=== PATIENT | male | born 1940 | race African-American/Black ===

== ENCOUNTER 2016-10-20 04:00 | Inpatient (IN) | payer OTHER ==
[~2016-10-20] VITALS: Ht 177.8 cm; Wt 145.5 kg
[~2016-10-20 04:00] MED LIST: CIPRO500 MG PO; METFORMIN HCL1000 MG PO; MYCOSTATIN1 APPLICAT TP; NITROSTAT0.3 MG SL; PIOGLITAZONE HC15 MG PO; POLYETHYLENE G255 GM PO; PYRIDIUM200 MG PO; RAMIPRIL10 MG PO; SIMVASTATIN20 MG PO; TRAMADOL HCL50 MG PO
[2016-10-20 05:03] LABS: HEMATOCRIT 44.7 % (38.0-50.0); MCH 29.8 PG (29.0-34.0); MCHC 33.6 G/DL (30.0-36.0); MCV 88.7 FL (86-99); MEAN PLAT.VOLUME 9.9 uM^3 (9.0-12.4); PLATELET COUNT 204 K/uL (156-360); RBC DIS.WIDTH-CV 14.1 % (11.8-14.6); RBC DIS.WIDTH-SD 45.2 % (39-53); RED BLOOD COUNT 5.04 M/uL (4.00-5.50); WHITE BLOOD COUNT 4.9 K/uL (4.1-10.2)
[2016-10-20 05:13] LABS: CHLORIDE 103 mEq/L (99-109); SODIUM 140 mEq/L (136-147)
[2016-10-20 05:14] LABS: GLUCOSE 227 mg/dL (70-99)
[2016-10-20 05:16] LABS: ANION GAP 12 MEQ/L (2-14)
[2016-10-20 05:18] LABS: GFR ESTIMATE (CALCULATED) > 59 mL/min/
[2016-10-20 05:19] LABS: UREA NITROGEN (BUN) 14 mg/dL (9-23)
[2016-10-20 05:24] LABS: TROP-I INTERPRETATION NEGATIVE; TROPONIN-I < 0.01 ng/mL (0.0-0.30)
[2016-10-20 05:55] LABS: TOTAL BILIRUBIN 1.2 mg/dL (0.0-1.0)
[2016-10-20 05:56] LABS: ALKALINE PHOSPHATASE 99 IU/L (3-129)
[2016-10-20 05:59] LABS: DIRECT BILIRUBIN 0.8 mg/dL (0.0-0.3)
[2016-10-20 06:15] LABS: LIPASE > 4220 U/L (1.0-51.0)
[2016-10-20 06:50] LABS: ADD MIUA? YES; BILIRUBIN NEGATIVE; BLOOD NEGATIVE; COLOR YELLOW ((YELLOW)); GLUCOSE (STRIP) 50; KETONES NEGATIVE; LEUKOCYTES NEGATIVE; NITRITE NEGATIVE; PROTEIN (STRIP) NEGATIVE; SPECIFIC GRAVITY 1.013 (1.000-1.030)
[2016-10-20 07:01] LABS: BACTERIA RARE /HPF; EPITHELIAL CELLS NONE SEEN /HPF; MUCUS TRACE /LPF; RED BLOOD CELLS 0-5 /HPF (0-5); UCUL ADDED? NO; WHITE BLOOD CELLS 0-5 /HPF (0-5)
[2016-10-20 09:01] LABS: HDL CHOLESTEROL 43 MG/DL (Desirable>=40); LDL CHOLESTEROL 55 mg/dL (Desirable<100); NON-HDL CHOLESTEROL 69 mg/dL (Desirable<160); TOTAL CHOLESTEROL 112 mg/dL (Desirable<200); TRIGLYCERIDES 70 MG/DL (Normal: <150)
[2016-10-20 09:30] LABS: POINT-OF-CARE METER ID UU13113702
[2016-10-20] MEDS ORDERED: AMLODIPINE BESYL5 MG PO (11:39)
[2016-10-20] MEDS ORDERED: VITAMIN D35000 UNIT PO (11:40)
[2016-10-20] MEDS ORDERED: ASPIR-LOW81 MG PO (11:40)
[2016-10-20] MEDS ORDERED: HYDROCHLOROTH12.5 M3 PO (11:40)
[2016-10-20] MEDS ORDERED: TERBINAFINE HC250 MG PO (11:41)
[2016-10-20 13:33] LABS: C-REACTIVE PROTEIN 7.7 MG/L (0-10); SAMPLE HEMOLYSIS CHECK 0; SAMPLE ICTERIC CHECK 0; SAMPLE LIPEMIA CHECK 0
[2016-10-20 15:24] VITALS: BP 88/49
[2016-10-20 15:27] LABS: POINT-OF-CARE METER ID UU13113725
[2016-10-20 16:31] VITALS: BP 92/58
[2016-10-20 18:06] VITALS: BP 120/72
[2016-10-20 18:22] LABS: POINT-OF-CARE METER ID UU13113725
[2016-10-20 21:39] LABS: POINT-OF-CARE METER ID UU13113725
[2016-10-20 23:17] VITALS: BP 138/73
[2016-10-21 02:48] LABS: POINT-OF-CARE METER ID UU13113725; POINT-OF-CARE USER ID 608261329
[2016-10-21 06:41] LABS: HEMATOCRIT 39.9 % (38.0-50.0); MCHC 33.3 G/DL (30.0-36.0); MCV 90.1 FL (86-99); MEAN PLAT.VOLUME 10.3 uM^3 (9.0-12.4); PLATELET COUNT 170 K/uL (156-360); RBC DIS.WIDTH-CV 14.9 % (11.8-14.6); RED BLOOD COUNT 4.43 M/uL (4.00-5.50)
[2016-10-21 06:48] LABS: WHITE BLOOD COUNT 11.5 K/uL (4.1-10.2)
[2016-10-21 06:57] LABS: ALKALINE PHOSPHATASE 101 IU/L (3-129); ANION GAP 9 MEQ/L (2-14); CHLORIDE 104 MEQ/L (99-109); GFR ESTIMATE (CALCULATED) > 59 mL/min/; GLUCOSE 166 mg/dL (70-99); POTASSIUM 4.1 MEQ/L (3.7-5.4); SAMPLE HEMOLYSIS CHECK 0; SAMPLE ICTERIC CHECK 1; SAMPLE LIPEMIA CHECK 0; SODIUM 139 MEQ/L (136-147); TOTAL BILIRUBIN 5.9 MG/DL (0.0-1.0); UREA NITROGEN (BUN) 19 mg/dL (9-23)
[2016-10-21 08:28] VITALS: BP 139/79
[2016-10-21 10:37] LABS: POINT-OF-CARE METER ID UU13113725
[2016-10-21 12:09] VITALS: BP 130/62
[2016-10-21 14:00] LABS: POINT-OF-CARE METER ID UU13113725
[2016-10-21 16:49] VITALS: BP 149/79
[2016-10-21 19:24] LABS: POINT-OF-CARE METER ID UU13113725
[2016-10-21 20:07] LABS: ALKALINE PHOSPHATASE 106 IU/L (3-129); ANION GAP 11 MEQ/L (2-14); CHLORIDE 104 MEQ/L (99-109); GFR ESTIMATE (CALCULATED) > 59 mL/min/; GLUCOSE 163 mg/dL (70-99); SAMPLE HEMOLYSIS CHECK 1; SAMPLE ICTERIC CHECK 2; SAMPLE LIPEMIA CHECK 0; SODIUM 138 MEQ/L (136-147); TOTAL BILIRUBIN 6.3 MG/DL (0.0-1.0); UREA NITROGEN (BUN) 15 mg/dL (9-23)
[2016-10-21 20:08] LABS: POTASSIUM 3.6 MEQ/L (3.7-5.4)
[2016-10-21 20:45] LABS: ABS NEUTROPHIL COUNT 12.4; ATYPICAL LYMPHOCYTE 2.7 %; BAND NEUTROPHILS 15.9 % (0-8.0); EOSINOPHIL ABS CT 0; HEMATOCRIT 47.2 % (38.0-50.0); INSTRUMENT ABS NEUTROPHIL CT 12.1 K/uL; LYMPHOCYTES 1.8 % (15.0-45.0); MCH 29.5 PG (29.0-34.0); MCHC 33.3 G/DL (30.0-36.0); MCV 88.7 FL (86-99); MEAN PLAT.VOLUME 10.2 uM^3 (9.0-12.4); PLAT.SUFFICIENCY DECREASED; PLATELET COUNT 146 K/uL (156-360); RBC DIS.WIDTH-CV 14.7 % (11.8-14.6); RBC DIS.WIDTH-SD 48.4 % (39-53); RED BLOOD COUNT 5.32 M/uL (4.00-5.50); SMUDGE CELLS 4.4; WHITE BLOOD COUNT 13.3 K/uL (4.1-10.2)
[2016-10-21 21:44] LABS: POINT-OF-CARE METER ID UU13113725
[2016-10-21 23:49] VITALS: BP 168/59
[2016-10-22 06:21] LABS: POINT-OF-CARE METER ID UU13113725
[2016-10-22 07:05] VITALS: BP 138/76
[2016-10-22 08:40] LABS: HEMATOCRIT 42.1 % (38.0-50.0); MCH 29.4 PG (29.0-34.0); MCHC 33.3 G/DL (30.0-36.0); MCV 88.4 FL (86-99); MEAN PLAT.VOLUME 10.4 uM^3 (9.0-12.4); PLATELET COUNT 154 K/uL (156-360); RBC DIS.WIDTH-CV 14.9 % (11.8-14.6); RBC DIS.WIDTH-SD 48.6 % (39-53); RED BLOOD COUNT 4.76 M/uL (4.00-5.50); WHITE BLOOD COUNT 12.8 K/uL (4.1-10.2)
[2016-10-22 09:15] LABS: ALKALINE PHOSPHATASE 121 IU/L (3-129); ANION GAP 12 MEQ/L (2-14); CHLORIDE 105 MEQ/L (99-109); GFR ESTIMATE (CALCULATED) > 59 mL/min/; GLUCOSE 191 mg/dL (70-99); LIPASE 220 U/L (1.0-51.0); POTASSIUM 3.4 MEQ/L (3.7-5.4); SAMPLE HEMOLYSIS CHECK 0; SAMPLE ICTERIC CHECK 2; SAMPLE LIPEMIA CHECK 0; SODIUM 142 MEQ/L (136-147); UREA NITROGEN (BUN) 12 mg/dL (9-23)
[2016-10-22 09:29] LABS: EOSINOPHIL (%) 0 % (0-5); IMMATURE GRANULOCYTE (%) 0.9 % (0.0-0.7); IMMATURE GRANULOCYTE COUNT 0.1 K/uL; INSTRUMENT ABS NEUTROPHIL CT 11.5 K/uL; LYMPHOCYTE COUNT 0.6 K/uL (1.0-2.8); MONOCYTE (%) 4.8 % (3-12); MONOCYTE COUNT 0.6 K/uL (0-0.8); NEUTROPHIL (%) 89.8 % (45-76); NEUTROPHIL COUNT 11.5 K/uL (1.8-6.4)
[2016-10-22 10:20] LABS: ANTI-HEPATITIS A VIRUS (IGM) Nonreactive; HBSG INDEX 0.21; HPCA INDEX 0.12
[2016-10-22 10:22] LABS: ANTI-HEPATITIS B CORE (IGM) Nonreactive; HBC IgM INDEX 0.08
[2016-10-22 15:15] VITALS: BP 135/73
[2016-10-22 22:50] VITALS: BP 142/68
[2016-10-22 23:50] LABS: POINT-OF-CARE METER ID UU13113725
[2016-10-23 06:12] LABS: POINT-OF-CARE METER ID UU13113725
[2016-10-23 06:12] LABS: EOSINOPHIL (%) 0.4 % (0-5); IMMATURE GRANULOCYTE (%) 0.4 % (0.0-0.7); INSTRUMENT ABS NEUTROPHIL CT 9.6 K/uL; LYMPHOCYTE COUNT 0.5 K/uL (1.0-2.8); MCH 29.4 PG (29.0-34.0); MCHC 33.7 G/DL (30.0-36.0); MCV 87.2 FL (86-99); MEAN PLAT.VOLUME 10.7 uM^3 (9.0-12.4); MONOCYTE (%) 7.6 % (3-12); MONOCYTE COUNT 0.8 K/uL (0-0.8); NEUTROPHIL (%) 86.8 % (45-76); NEUTROPHIL COUNT 9.6 K/uL (1.8-6.4); PLATELET COUNT 142 K/uL (156-360); RBC DIS.WIDTH-CV 14.9 % (11.8-14.6); RBC DIS.WIDTH-SD 48.2 % (39-53); RED BLOOD COUNT 4.36 M/uL (4.00-5.50)
[2016-10-23 06:24] VITALS: BP 142/68
[2016-10-23 06:31] LABS: INTER. NORMALIZED RATIO 1.1; PROTHROMBIN TIME 11.4 (9.2-11.2)
[2016-10-23 06:44] LABS: ALKALINE PHOSPHATASE 126 IU/L (3-129); ANION GAP 10 MEQ/L (2-14); CHLORIDE 107 MEQ/L (99-109); DIRECT BILIRUBIN 5.3 mg/dL (0.0-0.3); GFR ESTIMATE (CALCULATED) > 59 mL/min/; GLUCOSE 158 mg/dL (70-99); LIPASE 147 U/L (1.0-51.0); POTASSIUM 3.5 MEQ/L (3.7-5.4); SAMPLE HEMOLYSIS CHECK 0; SAMPLE ICTERIC CHECK 2; SAMPLE LIPEMIA CHECK 0; SODIUM 143 MEQ/L (136-147); TOTAL BILIRUBIN 7.5 MG/DL (0.0-1.0); UREA NITROGEN (BUN) 11 mg/dL (9-23)
[2016-10-23 09:58] VITALS: BP 133/64
[2016-10-23 10:23] LABS: MAGNESIUM 1.9 mg/dl (1.3-2.7)
[2016-10-23 13:05] LABS: POINT-OF-CARE METER ID UU13113675
[2016-10-23 15:04] VITALS: BP 136/67
[2016-10-23 18:26] LABS: POINT-OF-CARE METER ID UU13113725
[2016-10-23 19:41] VITALS: BP 143/73
[2016-10-23 23:29] VITALS: BP 139/77
[2016-10-24 07:10] LABS: EOSINOPHIL (%) 1.4 % (0-5); EOSINOPHIL COUNT 0.1 K/uL (0-0.3); HEMATOCRIT 37.5 % (38.0-50.0); IMMATURE GRANULOCYTE (%) 0.8 % (0.0-0.7); IMMATURE GRANULOCYTE COUNT 0.1 K/uL; INSTRUMENT ABS NEUTROPHIL CT 8.4 K/uL; LYMPHOCYTE COUNT 0.6 K/uL (1.0-2.8); MCH 29.7 PG (29.0-34.0); MCHC 34.4 G/DL (30.0-36.0); MCV 86.4 FL (86-99); MEAN PLAT.VOLUME 10.5 uM^3 (9.0-12.4); MONOCYTE (%) 7.9 % (3-12); MONOCYTE COUNT 0.8 K/uL (0-0.8); NEUTROPHIL (%) 84.2 % (45-76); NEUTROPHIL COUNT 8.4 K/uL (1.8-6.4); PLATELET COUNT 148 K/uL (156-360); RBC DIS.WIDTH-CV 15.4 % (11.8-14.6); RBC DIS.WIDTH-SD 48.9 % (39-53); RED BLOOD COUNT 4.34 M/uL (4.00-5.50)
[2016-10-24 07:39] LABS: ALKALINE PHOSPHATASE 140 IU/L (3-129); ANION GAP 9 MEQ/L (2-14); CHLORIDE 107 MEQ/L (99-109); GFR ESTIMATE (CALCULATED) > 59 mL/min/; GLUCOSE 167 mg/dL (70-99); LIPASE 176 U/L (1.0-51.0); POTASSIUM 3.7 MEQ/L (3.7-5.4); SAMPLE HEMOLYSIS CHECK 0; SAMPLE ICTERIC CHECK 1; SAMPLE LIPEMIA CHECK 0; SODIUM 142 MEQ/L (136-147); UREA NITROGEN (BUN) 16 mg/dL (9-23)
[2016-10-24 07:49] LABS: TOTAL BILIRUBIN 5.6 MG/DL (0.0-1.0)
[2016-10-24 08:18] VITALS: BP 145/71
[2016-10-24 16:19] LABS: POINT-OF-CARE METER ID UU13113725
[2016-10-24 16:33] VITALS: BP 149/74
[2016-10-24 20:43] LABS: POINT-OF-CARE METER ID UU13113725
[2016-10-24 23:27] VITALS: BP 159/70
[2016-10-25 06:22] LABS: EOSINOPHIL (%) 0.5 % (0-5); EOSINOPHIL COUNT 0.1 K/uL (0-0.3); HEMATOCRIT 37.5 % (38.0-50.0); IMMATURE GRANULOCYTE COUNT 0.2 K/uL; INSTRUMENT ABS NEUTROPHIL CT 9.6 K/uL; LYMPHOCYTE COUNT 0.7 K/uL (1.0-2.8); MCH 29.1 PG (29.0-34.0); MCHC 33.9 G/DL (30.0-36.0); MEAN PLAT.VOLUME 10.7 uM^3 (9.0-12.4); MONOCYTE (%) 8.3 % (3-12); NEUTROPHIL (%) 82.9 % (45-76); NEUTROPHIL COUNT 9.6 K/uL (1.8-6.4); NRBC (%) 0.3 /100 WBC (0-0); PLATELET COUNT 150 K/uL (156-360); RBC DIS.WIDTH-CV 15.6 % (11.8-14.6); RED BLOOD COUNT 4.36 M/uL (4.00-5.50); WHITE BLOOD COUNT 11.6 K/uL (4.1-10.2)
[2016-10-25 06:40] LABS: ALKALINE PHOSPHATASE 133 IU/L (3-129); ANION GAP 12 MEQ/L (2-14); CHLORIDE 103 MEQ/L (99-109); GFR ESTIMATE (CALCULATED) > 59 mL/min/; GLUCOSE 159 mg/dL (70-99); POTASSIUM 3.5 MEQ/L (3.7-5.4); SAMPLE HEMOLYSIS CHECK 0; SAMPLE ICTERIC CHECK 1; SAMPLE LIPEMIA CHECK 0; SODIUM 140 MEQ/L (136-147); TOTAL BILIRUBIN 4.6 MG/DL (0.0-1.0); UREA NITROGEN (BUN) 12 mg/dL (9-23)
[2016-10-25 07:25] VITALS: BP 147/73
[2016-10-25 10:05] LABS: LIPASE 191 U/L (1.0-51.0)
[2016-10-25 16:04] VITALS: BP 158/99
[2016-10-25 16:25] LABS: POINT-OF-CARE METER ID UU13113725
[2016-10-26 00:26] VITALS: BP 140/71
[2016-10-26 06:58] VITALS: BP 95/61
[2016-10-26 11:15] LABS: POINT-OF-CARE METER ID UU13113675
[2016-10-26 14:27] VITALS: BP 129/61
[2016-10-26 14:56] LABS: HEMATOCRIT 35.2 % (38.0-50.0); MCH 29.6 PG (29.0-34.0); MCHC 34.1 G/DL (30.0-36.0); MCV 86.7 FL (86-99); MEAN PLAT.VOLUME 11.3 uM^3 (9.0-12.4); NRBC (%) 0.2 /100 WBC (0-0); PLATELET COUNT 181 K/uL (156-360); RBC DIS.WIDTH-CV 16.4 % (11.8-14.6); RBC DIS.WIDTH-SD 51.3 % (39-53); RED BLOOD COUNT 4.06 M/uL (4.00-5.50); WHITE BLOOD COUNT 10.3 K/uL (4.1-10.2)
[2016-10-26 15:25] LABS: ABS NEUTROPHIL COUNT 9.3; ATYPICAL LYMPHOCYTE 0.9 %; BAND NEUTROPHILS 1.7 % (0-8.0); EOSINOPHIL ABS CT 0; INSTRUMENT ABS NEUTROPHIL CT 8.7 K/uL; LYMPHOCYTES 4.3 % (15.0-45.0); MYELOCYTES 0.9 %; PLAT.SUFFICIENCY ADEQUATE; SEG.NEUTROPHILS 88.7 % (46.0-76.0); SMUDGE CELLS 0.9
[2016-10-26 15:51] VITALS: BP 123/57
[2016-10-26 16:00] LABS: ALKALINE PHOSPHATASE 132 IU/L (3-129); ANION GAP 10 MEQ/L (2-14); CHLORIDE 104 MEQ/L (99-109); GFR ESTIMATE (CALCULATED) > 59 mL/min/; GLUCOSE 164 mg/dL (70-99); SAMPLE HEMOLYSIS CHECK 1; SAMPLE ICTERIC CHECK 0; SAMPLE LIPEMIA CHECK 0; SODIUM 139 MEQ/L (136-147); UREA NITROGEN (BUN) 16 mg/dL (9-23)
[2016-10-26 16:01] LABS: POTASSIUM 4.2 MEQ/L (3.7-5.4); TOTAL BILIRUBIN 2.9 MG/DL (0.0-1.0)
[2016-10-26 21:28] LABS: POINT-OF-CARE METER ID UU13113725
[2016-10-27 00:37] VITALS: BP 126/61
[2016-10-27 05:42] LABS: POINT-OF-CARE METER ID UU13113725
[2016-10-27 06:27] LABS: EOSINOPHIL (%) 1.4 % (0-5); EOSINOPHIL COUNT 0.1 K/uL (0-0.3); HEMATOCRIT 35.2 % (38.0-50.0); IMMATURE GRANULOCYTE (%) 1.3 % (0.0-0.7); IMMATURE GRANULOCYTE COUNT 0.1 K/uL; LYMPHOCYTE COUNT 0.8 K/uL (1.0-2.8); MCH 29.1 PG (29.0-34.0); MCHC 33.5 G/DL (30.0-36.0); MCV 86.7 FL (86-99); MEAN PLAT.VOLUME 11.2 uM^3 (9.0-12.4); MONOCYTE (%) 7.8 % (3-12); MONOCYTE COUNT 0.7 K/uL (0-0.8); NEUTROPHIL (%) 80.4 % (45-76); PLATELET COUNT 188 K/uL (156-360); RBC DIS.WIDTH-CV 16.5 % (11.8-14.6); RBC DIS.WIDTH-SD 51.4 % (39-53); RED BLOOD COUNT 4.06 M/uL (4.00-5.50); WHITE BLOOD COUNT 8.6 K/uL (4.1-10.2)
[2016-10-27 06:52] LABS: ALKALINE PHOSPHATASE 134 IU/L (3-129); ANION GAP 8 MEQ/L (2-14); CHLORIDE 102 MEQ/L (99-109); GFR ESTIMATE (CALCULATED) > 59 mL/min/; GLUCOSE 185 mg/dL (70-99); POTASSIUM 3.9 MEQ/L (3.7-5.4); SAMPLE HEMOLYSIS CHECK 0; SAMPLE ICTERIC CHECK 0; SAMPLE LIPEMIA CHECK 0; SODIUM 140 MEQ/L (136-147); TOTAL BILIRUBIN 2.7 MG/DL (0.0-1.0); UREA NITROGEN (BUN) 15 mg/dL (9-23)
[2016-10-27 07:19] VITALS: BP 132/63
[2016-10-27 15:16] LABS: POINT-OF-CARE METER ID UU13113725
[2016-10-27 20:57] LABS: POINT-OF-CARE METER ID UU13113725
[2016-10-27 22:28] VITALS: BP 153/76
[2016-10-28 06:12] LABS: POINT-OF-CARE METER ID UU13113725
[2016-10-28 07:35] LABS: EOSINOPHIL (%) 0 % (0-5); HEMATOCRIT 37.1 % (38.0-50.0); IMMATURE GRANULOCYTE (%) 0.6 % (0.0-0.7); IMMATURE GRANULOCYTE COUNT 0.1 K/uL; INSTRUMENT ABS NEUTROPHIL CT 9.2 K/uL; LYMPHOCYTE COUNT 0.6 K/uL (1.0-2.8); MCH 29.5 PG (29.0-34.0); MCHC 34.2 G/DL (30.0-36.0); MCV 86.3 FL (86-99); MONOCYTE (%) 1.2 % (3-12); MONOCYTE COUNT 0.1 K/uL (0-0.8); NEUTROPHIL (%) 92.3 % (45-76); NEUTROPHIL COUNT 9.2 K/uL (1.8-6.4); PLATELET COUNT 225 K/uL (156-360); RBC DIS.WIDTH-CV 16.5 % (11.8-14.6); RBC DIS.WIDTH-SD 51.1 % (39-53); WHITE BLOOD COUNT 9.9 K/uL (4.1-10.2)
[2016-10-28 07:39] VITALS: BP 165/76
[2016-10-28 08:05] LABS: ALKALINE PHOSPHATASE 129 IU/L (3-129); ANION GAP 12 MEQ/L (2-14); CHLORIDE 98 MEQ/L (99-109); GFR ESTIMATE (CALCULATED) > 59 mL/min/; POTASSIUM 4.2 MEQ/L (3.7-5.4); SAMPLE HEMOLYSIS CHECK 0; SAMPLE ICTERIC CHECK 0; SAMPLE LIPEMIA CHECK 0; SODIUM 140 MEQ/L (136-147); UREA NITROGEN (BUN) 20 mg/dL (9-23)
[2016-10-28 08:06] LABS: GLUCOSE 308 mg/dL (70-99); TOTAL BILIRUBIN 2.1 MG/DL (0.0-1.0)
[2016-10-28 16:06] VITALS: BP 178/80
[2016-10-28 16:19] VITALS: BP 163/73
[2016-10-28 17:32] VITALS: BP 172/84
[2016-10-28 23:05] VITALS: BP 171/74
[2016-10-29 05:50] LABS: POINT-OF-CARE METER ID UU13113725
[2016-10-29 06:43] LABS: HEMATOCRIT 36.2 % (38.0-50.0); MCH 29.4 PG (29.0-34.0); MCHC 34.3 G/DL (30.0-36.0); MCV 85.8 FL (86-99); MEAN PLAT.VOLUME 10.9 uM^3 (9.0-12.4); PLATELET COUNT 266 K/uL (156-360); RBC DIS.WIDTH-CV 16.3 % (11.8-14.6); RED BLOOD COUNT 4.22 M/uL (4.00-5.50); WHITE BLOOD COUNT 13.1 K/uL (4.1-10.2)
[2016-10-29 07:04] LABS: ALKALINE PHOSPHATASE 135 IU/L (3-129); ANION GAP 12 MEQ/L (2-14); CHLORIDE 97 MEQ/L (99-109); GFR ESTIMATE (CALCULATED) > 59 mL/min/; GLUCOSE 356 mg/dL (70-99); POTASSIUM 4.1 MEQ/L (3.7-5.4); SAMPLE HEMOLYSIS CHECK 0; SAMPLE ICTERIC CHECK 0; SAMPLE LIPEMIA CHECK 0; SODIUM 140 MEQ/L (136-147); TOTAL BILIRUBIN 1.9 MG/DL (0.0-1.0); UREA NITROGEN (BUN) 21 mg/dL (9-23)
[2016-10-29 07:14] VITALS: BP 144/68
[2016-10-29 11:24] LABS: POINT-OF-CARE METER ID UU13113725
[2016-10-29 17:31] VITALS: BP 136/70
[2016-10-29 21:22] LABS: POINT-OF-CARE METER ID UU13113725
[2016-10-29 23:26] VITALS: BP 145/69
[2016-10-30 06:14] LABS: HEMATOCRIT 37.3 % (38.0-50.0); MCH 29.1 PG (29.0-34.0); MCV 85.6 FL (86-99); MEAN PLAT.VOLUME 10.6 uM^3 (9.0-12.4); PLATELET COUNT 313 K/uL (156-360); RBC DIS.WIDTH-SD 49.8 % (39-53); RED BLOOD COUNT 4.36 M/uL (4.00-5.50); WHITE BLOOD COUNT 10.4 K/uL (4.1-10.2)
[2016-10-30 06:48] LABS: ANION GAP 11 MEQ/L (2-14); CHLORIDE 96 MEQ/L (99-109); GFR ESTIMATE (CALCULATED) > 59 mL/min/; GLUCOSE 378 mg/dL (70-99); POTASSIUM 4.2 MEQ/L (3.7-5.4); SAMPLE HEMOLYSIS CHECK 0; SAMPLE ICTERIC CHECK 0; SAMPLE LIPEMIA CHECK 0; SODIUM 140 MEQ/L (136-147); UREA NITROGEN (BUN) 22 mg/dL (9-23)
[2016-10-30 09:50] VITALS: BP 157/74
[2016-10-30] MEDS ORDERED: ADVAIR HFA120 INHALA IH (10:50)
[2016-10-30] MEDS ORDERED: AUGMENTIN875 MG PO (10:50)
[2016-10-30] MEDS ORDERED: PREDNISONE10 MG PO (10:50)
[2016-10-30] MEDS ORDERED: LASIX20 MG PO (10:50)
[2016-10-30] MEDS ORDERED: LEVEMIR FL100 UNIT/1 SC (10:51)
[2016-10-30 10:59] LABS: POINT-OF-CARE METER ID UU13113725
[2016-10-30 11:49] LABS: POINT-OF-CARE METER ID UU13113725
[2016-10-30 13:35] VITALS: BP 135/73
[2016-10-30 16:18] VITALS: BP 160/72
[2016-10-30 22:54] VITALS: BP 164/79
[2016-10-31 05:37] LABS: HEMATOCRIT 39.3 % (38.0-50.0); MCH 29.3 PG (29.0-34.0); MCHC 34.1 G/DL (30.0-36.0); MCV 85.8 FL (86-99); MEAN PLAT.VOLUME 10.4 uM^3 (9.0-12.4); PLATELET COUNT 326 K/uL (156-360); RBC DIS.WIDTH-CV 15.9 % (11.8-14.6); RBC DIS.WIDTH-SD 49.8 % (39-53); RED BLOOD COUNT 4.58 M/uL (4.00-5.50); WHITE BLOOD COUNT 9.5 K/uL (4.1-10.2)
[2016-10-31 06:02] LABS: ANION GAP 9 MEQ/L (2-14); CHLORIDE 95 MEQ/L (99-109); GFR ESTIMATE (CALCULATED) > 59 mL/min/; GLUCOSE 249 mg/dL (70-99); POTASSIUM 4.2 MEQ/L (3.7-5.4); SAMPLE HEMOLYSIS CHECK 0; SAMPLE ICTERIC CHECK 0; SAMPLE LIPEMIA CHECK 0; SODIUM 137 MEQ/L (136-147); UREA NITROGEN (BUN) 21 mg/dL (9-23)
[2016-10-31 06:25] LABS: POINT-OF-CARE METER ID UU13113725
[2016-10-31 06:57] VITALS: BP 156/71
[2016-10-31 12:52] VITALS: BP 148/71
[2016-10-31 13:10] VITALS: BP 141/69
[2016-10-31 13:25] VITALS: BP 132/64
[2016-10-31 14:57] VITALS: BP 134/65
[2016-10-31 15:38] LABS: POINT-OF-CARE METER ID UU13113725
[2016-10-31 23:43] VITALS: BP 144/71
[2016-11-01 06:10] LABS: POINT-OF-CARE METER ID UU13113725
[2016-11-01 06:55] LABS: HEMATOCRIT 42.2 % (38.0-50.0); MCH 29.5 PG (29.0-34.0); MCHC 33.9 G/DL (30.0-36.0); MCV 87.2 FL (86-99); MEAN PLAT.VOLUME 10.6 uM^3 (9.0-12.4); PLATELET COUNT 346 K/uL (156-360); RED BLOOD COUNT 4.84 M/uL (4.00-5.50); WHITE BLOOD COUNT 7.9 K/uL (4.1-10.2)
[2016-11-01 07:18] LABS: ANION GAP 9 MEQ/L (2-14); CHLORIDE 93 MEQ/L (99-109); GFR ESTIMATE (CALCULATED) > 59 mL/min/; GLUCOSE 176 mg/dL (70-99); POTASSIUM 4.3 MEQ/L (3.7-5.4); SAMPLE HEMOLYSIS CHECK 0; SAMPLE ICTERIC CHECK 0; SAMPLE LIPEMIA CHECK 0; SODIUM 135 MEQ/L (136-147); UREA NITROGEN (BUN) 20 mg/dL (9-23)
[2016-11-01 07:25] VITALS: BP 138/72
[2016-11-01 11:00] VITALS: BP 135/60
[2016-11-01 16:00] VITALS: BP 131/62
[2016-11-01 21:20] LABS: POINT-OF-CARE METER ID UU13113725
[2016-11-02 00:04] VITALS: BP 121/60
[2016-11-02 06:03] LABS: POINT-OF-CARE METER ID UU13113725
[2016-11-02 07:39] VITALS: BP 126/60
[2016-11-02 11:38] LABS: POINT-OF-CARE METER ID UU13113725
[2016-11-02] MEDS ORDERED: CIPRO500 MG PO (13:34)
[2016-11-02] MEDS ORDERED: METRONIDAZOLE500 MG PO (13:34)
[2016-11-02 14:28] VITALS: BP 115/73
== END 2016-11-02 15:57 | disposition home health service (06) | DRG 417 ==
LOC: EME 04:00 → 5EAST 07:27 → EDOF 07:27 → 5EAST 13:55
PROVIDERS: Emergency Medicine; Hospitalist; Internal Medicine
DX: K85.10 Biliary acute pancreatitis without necrosis or infection (principal); E11.65 Type 2 diabetes mellitus with hyperglycemia; I10 Essential (primary) hypertension; K21.9 Gastro-esophageal reflux disease without esophagitis; G47.33 Obstructive sleep apnea (adult) (pediatric); E78.2 Mixed hyperlipidemia; J18.9 Pneumonia, unspecified organism; E66.01 Morbid (severe) obesity due to excess calories; Z68.42 Body mass index [BMI] 45.0-49.9, adult; J96.01 Acute respiratory failure with hypoxia; K80.10 Calculus of gallbladder with chronic cholecystitis without obstruction; L02.91 Cutaneous abscess, unspecified; E80.6 Other disorders of bilirubin metabolism; K91.872 Postprocedural seroma of a digestive system organ or structure following a digestive system procedure; J90 Pleural effusion, not elsewhere classified; M19.90 Unspecified osteoarthritis, unspecified site; I87.1 Compression of vein; K57.30 Diverticulosis of large intestine without perforation or abscess without bleeding; B96.7 Clostridium perfringens [C. perfringens] as the cause of diseases classified elsewhere; B96.20 Unspecified Escherichia coli [E. coli] as the cause of diseases classified elsewhere
CPT/HCPCS: 71010; 71020; 71275; 74177; 74181; 74330; 75989; 80048; 80053; 80061; 80074; 80076; 81003; 82248; 82948; 83605; 83690; 83735; 83880; 84484; 85025; 85027; 85610; 86038; 86140; 86255 90; 87040; 87070; 87075; 87076; 87077; 87081; 87116; 87186; 87205; 87206; 88304; 93005; 93306; 94010; 94640; 94640 76; 94660; 94667; 94668; 94760; 94799; 97530 GP; 99202; 99281; 99284; C1757; C1769; C2625; J0131; J0330; J0690; J0696; J0744; J1170; J1335; J1650; J1815; J1940; J1956; J2250; J2405; J2543; J2920; J2930; J3010; J3480; J7030; J7040; J7050; J7120; J7512

== ENCOUNTER → 2017-01-29 | Outpatient (CLI) | payer OTHER ==
[~2017-01-29] MED LIST changes: +ADVAIR HFA120 INHALA IH; +AMLODIPINE BESYL5 MG PO; +ANTIVERT25 MG PO; +ASPIR-LOW81 MG PO; +AUGMENTIN875 MG PO; +HYDROCHLOROTH12.5 M3 PO; +KONSYL PSYLLIU3.4 GM PO; +LASIX20 MG PO; +LEVEMIR FL100 UNIT/1 SC; +METRONIDAZOLE500 MG PO; +MIRALAX17 GM PO; +NORVASC5 MG PO; +PREDNISONE10 MG PO; +TERBINAFINE HC250 MG PO; +VITAMIN D35000 UNIT PO; +[UNRECOGNIZED DRUG - OTHER] TP
[2017-01-29 09:56] LABS: POINT-OF-CARE METER ID UU14107333
== END | disposition home or self-care (01) ==
LOC: AMB 08:49
PROVIDERS: Internal Medicine Gastroenterology
PROC: 0FPB8DZ Removal of Intraluminal Device from Hepatobiliary Duct, Via Natural or Artificial Opening Endoscopic (ICD-10-PCS; principal; 2017-01-29)
DX: K83.1 Obstruction of bile duct (principal); Z90.49 Acquired absence of other specified parts of digestive tract; K21.9 Gastro-esophageal reflux disease without esophagitis; Z79.82 Long term (current) use of aspirin; Z79.84 Long term (current) use of oral hypoglycemic drugs
CPT/HCPCS: 74328; 82948; 87081; 93005; C1757; C1769; J0330; J2405; J2765; J3010

== ENCOUNTER → 2017-10-13 | Outpatient (CLI) | payer OTHER | END | disposition home or self-care (01) | LOC: RES 13:42 | DX: J98.4 Other disorders of lung (principal) | CPT/HCPCS: 71046; 94060; 94726; 94729 ==